=== PATIENT | male | born 1930 | race Caucasian/White ===

== ENCOUNTER → 2016-07-15 | Outpatient (CLI) | payer MEDICARE ==
[~2016-07-15] MED LIST: AVEL1TAB PO; MUCI600T34 PO; RAMI25CA PO
[2016-07-15 11:39] LABS: MEAN CORPUSCULAR HEMOGLOBIN 30.1 pg (27.0-33.0); MEAN CORPUSCULAR HGB CONC 32.8 g/dl (32.0-36.5); RED CELL DISTRIBUTION WIDTH 13.4 % (11.5-14.5); WHITE BLOOD COUNT 4.2 K/mm3 (4.0-10.0)
[2016-07-15 12:00] LABS: ALBUMIN 4.2 GM/DL (3.2-5.2); BILIRUBIN,TOTAL 0.6 MG/DL (0.2-1.0); CALCIUM LEVEL 9.5 MG/DL (8.8-10.2); CREATININE FOR GFR 1.31 MG/DL (0.70-1.30); GLOMERULAR FILTRATION RATE 55.4 (>35); POTASSIUM SERUM 4.6 MEQ/L (3.5-5.1); TOTAL PROTEIN 8.4 GM/DL (6.4-8.2)
== END ==
LOC: M WUC 09:37
PROVIDERS: ATTEND Family Medicine
DX: I10 Essential (primary) hypertension (principal); R73.01 Impaired fasting glucose

== ENCOUNTER 2018-05-10 10:53 | Inpatient (IN) | payer OTHER, MEDICARE ==
[~2018-05-10] VITALS: Ht 177.8 cm; Wt 65.9 kg
[~2018-05-10 10:53] MED LIST changes: -AVEL1TAB PO; +AVEL1TAB3 PO; -MUCI600T34 PO; +MUCI600T37 PO; +RAMI1CAP22 PO; -RAMI25CA PO
[2018-05-10 11:35] LABS: BASO % 0.3 % (0.0-1.0); EOS # 0.1 10^3/uL (0.0-0.50); EOS % 2.4 % (0.0-3.0); HEMOGLOBIN 15.3 g/dl (13.5-17.5); LYMPH # 1.2 10^3/uL (1.5-4.5); LYMPH % 20.6 % (24.0-44.0); MEAN CORPUSCULAR HEMOGLOBIN 30.2 pg (27.0-33.0); MEAN CORPUSCULAR HGB CONC 33.3 g/dl (32.0-36.5); MEAN CORPUSCULAR VOLUME 90.7 fl (80.0-96.0); MONO # 0.5 10^3/uL (0.0-0.8); MONO % 8.5 % (0.0-5.0); NEUTROPHILS # 3.9 10^3/uL (1.8-7.7); NEUTROPHILS % 67.5 % (36.0-66.0); PLATELET COUNT, AUTOMATED 207 10^3/uL (150-450); RED BLOOD COUNT 5.07 10^6/uL (4.30-6.10); WHITE BLOOD COUNT 5.8 10^3/uL (4.0-10.0)
--- NOTE | 2018-05-10 11:37 | REP ---
Clinical: Trauma. Comparison: 08/02/2015 . Findings: Age-related atrophy and microvascular ischemic changes are appreciated. The ventricles and sulci are symmetric. Boykin-white differentiation is maintained. There is no evidence for acute intracranial hemorrhage, mass/mass effect, pathology or infarction. No extra-axial fluid collection. Calvarium is intact. Paranasal sinuses and mastoid air cells are clear. Impression: Age related atrophy and microvascular ischemic changes. No acute intracranial hemorrhage, infarction, or mass/mass effect. Electronically Signed by Farooq Greenberg MD 05/10/2018 11:29 A
--- NOTE | 2018-05-10 11:40 | REP ---
Clinical: Trauma . Technique: Axial noncontrast images from the skull base to the thoracic inlet with coronal and sagittal re-formations Findings: Age-related osteopenia and advanced multilevel degenerative changes are appreciated. Alignment is maintained. There is no acute fracture / compression injury or subluxation. Spinal canal is patent. Posterior elements and spinous processes are intact. Paravertebral soft tissues are normal. Impression: Osteopenia and advanced multilevel degenerative changes. No acute fracture / compression injury or subluxation. Electronically Signed by Farooq Greenberg MD 05/10/2018 11:32 A
[2018-05-10 11:45] LABS: INR 0.95; PROTHROMBIN TIME 12.8 SECONDS (12.1-14.4)
[2018-05-10 12:15] LABS: ALBUMIN 3.7 GM/DL (3.2-5.2); BILIRUBIN,DIRECT 0.2 MG/DL (0.0-0.2); BILIRUBIN,TOTAL 0.5 MG/DL (0.2-1.0); CALCIUM LEVEL 8.7 MG/DL (8.8-10.2); CREATININE FOR GFR 1.37 MG/DL (0.70-1.30); GLOMERULAR FILTRATION RATE 52.3 (>35); POTASSIUM SERUM 4.2 MEQ/L (3.5-5.1); TOTAL PROTEIN 7.9 GM/DL (6.4-8.2)
--- NOTE | 2018-05-10 12:23 | REP ---
Clinical: Trauma. Technique: Single AP view of the pelvis. Findings: Age-related degenerative changes are appreciated. Evidence for old fixation for left proximal femur fracture. No acute fracture or dislocation identified. Impression: No acute fracture dislocation. Electronically Signed by Farooq Greenberg MD 05/10/2018 12:15 P
--- NOTE | 2018-05-10 12:24 | REP ---
Clinical: Trauma. Technique: AP and lateral views of the chest. Findings: Mediastinum and cardiac silhouette are normal. Lung nina demonstrate chronic interstitial changes. Left lower lobe atelectasis cannot be excluded. No effusion. No pneumothorax. Skeletal structures intact. Impression: Chronic changes with possible left basilar atelectasis Electronically Signed by Farooq Greenberg MD 05/10/2018 12:15 P
[2018-05-10] MEDS ORDERED: RAMIPRIL 5 MG CAP PO ONE (12:30)
[2018-05-10] MEDS ORDERED: RAMIPRIL 1.25 MG CAP PO ONE (12:30)
[2018-05-10] MEDS ORDERED: ISOVUE-370 76% 100ML VIAL (Q9967) As Ordered ONE (12:35)
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
--- NOTE | 2018-05-10 13:13 | REP ---
Clinical: Trauma. Technique: Axial contrast enhanced images from the lung bases to the pubic symphysis using 100 ml Isovue 370 intravenous contrast material with coronal and sagittal re-formations. Findings: Lung bases demonstrate basilar atelectasis (left greater than right) and calcified granuloma. There is small amount of subcapsular fluid surrounding the posterior aspect of the spleen concerning for subcapsular hemorrhage. No obvious splenic laceration identified. Splenic calcifications consistent with prior granulomas disease. Liver, pancreas, bilateral adrenal glands are normal. Kidneys demonstrate cortical atrophic changes and left renal cyst. Cholelithiasis noted. The enteric system is without obstruction or acute inflammatory process. Diffuse diverticulosis noted without acute diverticulitis. Pelvis demonstrates a significantly enlarged heterogeneous enhancing prostate gland measuring greater than 7.2 cm maximal diameter. Bladder is unremarkable. No ascites. No free air. Atherosclerotic changes of the aorta and vasculature without aneurysm or dissection. Musculoskeletal structures appear intact. Impression: 1. Possible small subcapsular splenic hematoma. 2. Cholelithiasis. 3. Diverticulosis. 4. Enlarged heterogeneous enhancing prostate gland. Electronically Signed by Farooq Greenberg MD 05/10/2018 01:05 P
--- NOTE | 2018-05-10 13:49 | ECGEPIP ---
Stationary ECG Study [facility] - ED Test Date: 2018-05-10 Pat Name: MATTHEW MARTIN Department: Room: - Gender: M District Resource Officer: jhonathanelma : 1930 Requested By: Izabella Ordonez Order Number: [id number] Reading MD: Izabella Ordonez Measurements Intervals Challenge Rate: 92 P: 86 NE: 202 QRS: 48 QRSD: 94 T: 54 QT: 337 QTc: 418 Interpretive Statements SINUS RHYTHM WITH OCCASIONAL SUPRAVENTRICULAR PREMATURE COMPLEXES PROBABLE NSTTW ABNORMALITY DECREASED RATE 08/02/15 Electronically Signed On 05-10-2018 13:49:27 EST by Izabella Ordonez
[2018-05-10] MEDS ORDERED: ACETAMINOPHEN TAB 650MG DOSE (2X325MG) PO PRN (16:30)
[2018-05-10] MEDS ORDERED: ONDANSETRON 4MG/2ML VIAL (J2405) IV PRN (16:30)
[2018-05-10 17:00] VITALS: BP 144/65
[2018-05-10] MEDS ORDERED: ACETAMINOPHEN 325 MG TAB As Ordered ONE (17:03)
[2018-05-10] MEDS: ACETAMINOPH W/CODEINE #3 TAB UD PO PRN (18:12)
[2018-05-10] MEDS: LR 1,000 ML IV SCH (18:23)
[2018-05-10] MEDS: DOCUSATE SODIUM 100 MG CAP PO SCH (21:24)
[2018-05-11 02:00] VITALS: BP 144/88
[2018-05-11 06:00] VITALS: BP 142/69
[2018-05-11 06:24] LABS: BASO % 0.3 % (0.0-1.0); EOS # 0.1 10^3/uL (0.0-0.50); EOS % 0.7 % (0.0-3.0); HEMATOCRIT 38.5 % (42.0-52.0); LYMPH # 0.7 10^3/uL (1.5-4.5); LYMPH % 10.3 % (24.0-44.0); MEAN CORPUSCULAR HGB CONC 33.8 g/dl (32.0-36.5); MEAN CORPUSCULAR VOLUME 88.7 fl (80.0-96.0); MONO # 0.8 10^3/uL (0.0-0.8); MONO % 10.7 % (0.0-5.0); NEUTROPHILS # 5.4 10^3/uL (1.8-7.7); NEUTROPHILS % 77.7 % (36.0-66.0); PLATELET COUNT, AUTOMATED 191 10^3/uL (150-450); RED BLOOD COUNT 4.34 10^6/uL (4.30-6.10)
[2018-05-11 06:59] LABS: ALBUMIN 3.2 GM/DL (3.2-5.2); ALT/SGPT 24 U/L (12-78); BILIRUBIN,TOTAL 0.9 MG/DL (0.2-1.0); BLOOD UREA NITROGEN 21 MG/DL (7-18); CALCIUM LEVEL 8.5 MG/DL (8.8-10.2); CARBON DIOXIDE LEVEL 28 MEQ/L (21-32); CHLORIDE LEVEL 103 MEQ/L (98-107); CREATININE FOR GFR 1.16 MG/DL (0.70-1.30); GLOMERULAR FILTRATION RATE > 60.0 (>35); GLUCOSE, FASTING 125 MG/DL (70-100); POTASSIUM SERUM 4.1 MEQ/L (3.5-5.1); SODIUM LEVEL 137 MEQ/L (136-145); TOTAL PROTEIN 6.6 GM/DL (6.4-8.2)
[2018-05-11] MEDS: RAMIPRIL 1.25 MG CAP PO SCH (09:04)
[2018-05-11] MEDS: LR 1,000 ML IV SCH (09:04)
[2018-05-11] MEDS: DOCUSATE SODIUM 100 MG CAP PO SCH ×2 (09:04→21:54)
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
[2018-05-11 10:00] VITALS: BP 126/78
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
[2018-05-11 14:00] VITALS: BP 140/62
[2018-05-11] MEDS: ACETAMINOPH W/CODEINE #3 TAB UD PO PRN (15:16)
[2018-05-11 18:00] VITALS: BP 166/78
[2018-05-11 22:00] VITALS: BP 129/66
[2018-05-12 02:00] VITALS: BP 145/94
[2018-05-12 05:35] LABS: BASO % 0.3 % (0.0-1.0); EOS # 0.1 10^3/uL (0.0-0.50); EOS % 1.2 % (0.0-3.0); HEMATOCRIT 39.6 % (42.0-52.0); HEMOGLOBIN 13.2 g/dl (13.5-17.5); MEAN CORPUSCULAR HEMOGLOBIN 29.8 pg (27.0-33.0); MEAN CORPUSCULAR HGB CONC 33.3 g/dl (32.0-36.5); MEAN CORPUSCULAR VOLUME 89.4 fl (80.0-96.0); MONO # 0.8 10^3/uL (0.0-0.8); MONO % 10.1 % (0.0-5.0); NEUTROPHILS # 5.7 10^3/uL (1.8-7.7); PLATELET COUNT, AUTOMATED 177 10^3/uL (150-450); RED BLOOD COUNT 4.43 10^6/uL (4.30-6.10); WHITE BLOOD COUNT 7.6 10^3/uL (4.0-10.0)
[2018-05-12 06:00] VITALS: BP 143/78
[2018-05-12] MEDS: ACETAMINOPH W/CODEINE #3 TAB UD PO PRN ×4 (06:12→23:17)
[2018-05-12] MEDS: DOCUSATE SODIUM 100 MG CAP PO SCH ×2 (08:42→20:02)
[2018-05-12] MEDS: RAMIPRIL 1.25 MG CAP PO SCH (08:45)
[2018-05-12 10:00] VITALS: BP 115/60
[2018-05-12 14:00] VITALS: BP 157/75
[2018-05-12 18:00] VITALS: BP 132/62
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
[2018-05-12 22:00] VITALS: BP 155/87
[2018-05-13] VITALS (7 sets, daily range): BP systolic 130–154; BP diastolic 62–79
[2018-05-13 04:14] LABS: APPEARANCE, URINE HAZY (CLEAR); BACTERIA, URINE AUTO NEGATIVE (NEGATIVE); BILIRUBIN, URINE AUTO NEGATIVE (NEGATIVE); BLOOD, URINE BLOOD 3+ (NEGATIVE); COLOR, URINE YELLOW (YELLOW); GLUCOSE, URINE (UA) AUTO NEGATIVE (NEGATIVE); KETONE, URINE AUTO 1+ mg/dL (NEGATIVE); LEUKOCYTE ESTERASE, URINE AUTO NEGATIVE (NEGATIVE); MUCUS, URINE SMALL (NEGATIVE); NITRITE, URINE AUTO NEGATIVE (NEGATIVE); PROTEIN, URINE AUTO 2+ mg/dL (NEGATIVE); RBC, URINE AUTO TNTC /HPF (0-3); SPECIFIC GRAVITY URINE AUTO 1.026 (1.002-1.035); SQUAMOUS EPITHELIAL CELL UR AU 0 /HPF (0-6); WBC, URINE AUTO 3 /HPF (0-3)
[2018-05-13] MEDS: RAMIPRIL 1.25 MG CAP PO SCH (08:29)
[2018-05-13] MEDS: DOCUSATE SODIUM 100 MG CAP PO SCH ×2 (08:29→19:51)
[2018-05-13] MEDS: ACETAMINOPH W/CODEINE #3 TAB UD PO PRN ×2 (08:30→15:36)
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
[2018-05-14 02:00] VITALS: BP 152/70
[2018-05-14 05:48] LABS: BASO % 0.1 % (0.0-1.0); EOS % 0.4 % (0.0-3.0); HEMATOCRIT 38.6 % (42.0-52.0); HEMOGLOBIN 12.7 g/dl (13.5-17.5); LYMPH # 0.7 10^3/uL (1.5-4.5); LYMPH % 8.8 % (24.0-44.0); MEAN CORPUSCULAR HEMOGLOBIN 29.7 pg (27.0-33.0); MEAN CORPUSCULAR HGB CONC 32.9 g/dl (32.0-36.5); MEAN CORPUSCULAR VOLUME 90.2 fl (80.0-96.0); MONO # 0.8 10^3/uL (0.0-0.8); MONO % 10.7 % (0.0-5.0); NEUTROPHILS # 6.3 10^3/uL (1.8-7.7); NEUTROPHILS % 79.7 % (36.0-66.0); PLATELET COUNT, AUTOMATED 209 10^3/uL (150-450); RED BLOOD COUNT 4.28 10^6/uL (4.30-6.10); WHITE BLOOD COUNT 7.9 10^3/uL (4.0-10.0)
[2018-05-14 06:00] VITALS: BP 142/69
[2018-05-14 06:13] LABS: ALBUMIN 2.8 GM/DL (3.2-5.2); CALCIUM LEVEL 8.8 MG/DL (8.8-10.2); CREATININE FOR GFR 1.24 MG/DL (0.70-1.30); GLOMERULAR FILTRATION RATE 58.7 (>35); POTASSIUM SERUM 3.9 MEQ/L (3.5-5.1); TOTAL PROTEIN 7.6 GM/DL (6.4-8.2)
[2018-05-14] MEDS: PERCOCET 5MG/325MG TAB PO PRN ×2 (08:00→17:05)
[2018-05-14] MEDS: RAMIPRIL 1.25 MG CAP PO SCH (08:01)
[2018-05-14] MEDS: DOCUSATE SODIUM 100 MG CAP PO SCH ×2 (08:01→20:34)
--- NOTE | 2018-05-14 08:12 | REP ---
Portable chest x-ray: Single view. History: Decreased oxygen saturation. Comparison study: May 10, 2018. Findings: Oxygen delivery tubing is seen. Right hemidiaphragm is somewhat elevated. There is infiltrate in the right lower lobe and patchy infiltrate is seen in the left lower lobe behind the heart. Slight blunting of the right lateral pleural angle is seen suggesting a small amount of pleural fluid. There is an old healed rib fracture on the right. The heart size is normal. No significant bony abnormality. Impression: Bibasilar infiltrates. Electronically Signed by Sukhjinder Cervantes MD 05/14/2018 08:04 A
[2018-05-14 10:00] VITALS: BP 125/58
[2018-05-14] MEDS: ACETAMINOPH W/CODEINE #3 TAB UD PO PRN (13:08)
[2018-05-14 14:00] VITALS: BP 113/58
[2018-05-14 18:00] VITALS: BP 126/67
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
[2018-05-14] MEDS: MIRALAX *UNIT DOSE* 17GM PACKET PO PRN (20:34)
[2018-05-14 22:00] VITALS: BP 124/60
[2018-05-15] MEDS: ACETAMINOPH W/CODEINE #3 TAB UD PO PRN (00:07)
[2018-05-15 02:00] VITALS: BP 144/65
[2018-05-15 06:00] VITALS: BP 132/76
[2018-05-15] MEDS: RAMIPRIL 1.25 MG CAP PO SCH (08:46)
[2018-05-15] MEDS: DOCUSATE SODIUM 100 MG CAP PO SCH ×2 (08:46→20:16)
[2018-05-15 10:00] VITALS: BP 108/60
[2018-05-15 14:00] VITALS: BP 122/62
[2018-05-15 18:00] VITALS: BP 142/76
[2018-05-15] MEDS: MIRALAX *UNIT DOSE* 17GM PACKET PO PRN (20:16)
[2018-05-15 22:00] VITALS: BP 151/70
[2018-05-16] VITALS (7 sets, daily range): BP systolic 120–170; BP diastolic 66–80
[2018-05-16] MEDS: RAMIPRIL 1.25 MG CAP PO SCH (07:04)
[2018-05-16] MEDS: ACETAMINOPH W/CODEINE #3 TAB UD PO PRN ×2 (07:08→20:41)
[2018-05-16] MEDS: DOCUSATE SODIUM 100 MG CAP PO SCH ×2 (08:35→20:40)
[2018-05-17] VITALS (7 sets, daily range): BP systolic 109–148; BP diastolic 72–91
[2018-05-17] MEDS: DOCUSATE SODIUM 100 MG CAP PO SCH ×2 (07:50→20:30)
[2018-05-17] MEDS: RAMIPRIL 1.25 MG CAP PO SCH (07:51)
[2018-05-17] MEDS: ACETAMINOPH W/CODEINE #3 TAB UD PO PRN (07:54)
[2018-05-18] MEDS: ACETAMINOPH W/CODEINE #3 TAB UD PO PRN (01:48)
[2018-05-18 02:00] VITALS: BP 140/80
[2018-05-18 06:00] VITALS: BP 140/75
[2018-05-18] MEDS: PERCOCET 5MG/325MG TAB PO PRN (08:40)
[2018-05-18 08:41] VITALS: BP 135/75
[2018-05-18] MEDS: DOCUSATE SODIUM 100 MG CAP PO SCH (08:41)
[2018-05-18] MEDS: RAMIPRIL 1.25 MG CAP PO SCH (08:41)
[2018-05-18 12:00] VITALS: BP 132/81
[2018-05-18 14:00] VITALS: BP 106/51
[2018-05-18 18:00] VITALS: BP 112/74
== END 2018-05-18 18:40 | DRG 930 ==
LOC: M ED 10:53 → M ED INP 16:22 → M MSPAV 17:34
PROVIDERS: ADMIT Surgery; ATTEND Surgery
DX: S22.20XA Unspecified fracture of sternum, initial encounter for closed fracture (principal); S36.029A Unspecified contusion of spleen, initial encounter; I10 Essential (primary) hypertension; E78.5 Hyperlipidemia, unspecified; K57.30 Diverticulosis of large intestine without perforation or abscess without bleeding; V47.0XXA Car driver injured in collision with fixed or stationary object in nontraffic accident, initial encounter

== ENCOUNTER 2018-05-18 15:27 | Inpatient (IN) | payer OTHER, MEDICARE ==
[~2018-05-18] VITALS: Ht 177.8 cm; Wt 63.9 kg
[2018-05-18] MEDS ORDERED: NORCO, ANEXSIA 5/325MG TABLET (HYDROcodone/ACETAMINOPHEN) PO PRN (18:30)
[2018-05-18] MEDS ORDERED: ACETAMINOPHEN TAB 650MG DOSE (2X325MG) PO PRN (18:30)
[2018-05-18] MEDS ORDERED: ONDANSETRON 4 MG TAB (S0181) PO PRN (18:30)
[2018-05-18] MEDS ORDERED: MOM 30ML SUSPENSION UDC PO PRN (18:30)
[2018-05-18] MEDS ORDERED: BISACODYL 10 MG SUPP PR PRN (18:30)
[2018-05-18 18:50] VITALS: BP 129/72
[2018-05-18 20:00] VITALS: BP 137/82
[2018-05-18] MEDS: FERROUS GLUCONATE 324 MG TAB PO SCH (21:32)
[2018-05-18] MEDS: SENOKOT S TAB PO SCH (21:32)
[2018-05-18] MEDS: SENNA 8.6 MG TAB (SENOKOT) PO SCH (21:32)
[2018-05-19 05:15] LABS: APPEARANCE, URINE HAZY (CLEAR); BACTERIA, URINE AUTO NEGATIVE (NEGATIVE); BILIRUBIN, URINE AUTO NEGATIVE (NEGATIVE); BLOOD, URINE BLOOD NEGATIVE (NEGATIVE); COLOR, URINE YELLOW (YELLOW); GLUCOSE, URINE (UA) AUTO NEGATIVE (NEGATIVE); KETONE, URINE AUTO TRACE mg/dL (NEGATIVE); LEUKOCYTE ESTERASE, URINE AUTO NEGATIVE (NEGATIVE); MUCUS, URINE SMALL (NEGATIVE); NITRITE, URINE AUTO NEGATIVE (NEGATIVE); PROTEIN, URINE AUTO NEGATIVE (NEGATIVE); RBC, URINE AUTO 7 /HPF (0-3); SPECIFIC GRAVITY URINE AUTO 1.021 (1.002-1.035); SQUAMOUS EPITHELIAL CELL UR AU 0 /HPF (0-6); TRANSITIONAL EPITHELIAL AUTO 1 /HPF; WBC, URINE AUTO 2 /HPF (0-3)
[2018-05-19 06:09] VITALS: BP 114/55
[2018-05-19 07:05] LABS: BASO % 0.3 % (0.0-1.0); EOS # 0.1 10^3/uL (0.0-0.50); EOS % 1.3 % (0.0-3.0); HEMOGLOBIN 12.6 g/dl (13.5-17.5); LYMPH # 1.1 10^3/uL (1.5-4.5); LYMPH % 10.6 % (24.0-44.0); MEAN CORPUSCULAR HEMOGLOBIN 29.9 pg (27.0-33.0); MEAN CORPUSCULAR HGB CONC 33.2 g/dl (32.0-36.5); MEAN CORPUSCULAR VOLUME 90.3 fl (80.0-96.0); MONO % 9.9 % (0.0-5.0); NEUTROPHILS # 7.8 10^3/uL (1.8-7.7); NEUTROPHILS % 77.2 % (36.0-66.0); PLATELET COUNT, AUTOMATED 314 10^3/uL (150-450); RED BLOOD COUNT 4.21 10^6/uL (4.30-6.10); WHITE BLOOD COUNT 10.1 10^3/uL (4.0-10.0)
[2018-05-19 07:31] LABS: ALBUMIN 2.6 GM/DL (3.2-5.2); ALT/SGPT 54 U/L (12-78); BILIRUBIN,TOTAL 0.5 MG/DL (0.2-1.0); BLOOD UREA NITROGEN 44 MG/DL (7-18); CALCIUM LEVEL 8.8 MG/DL (8.8-10.2); CARBON DIOXIDE LEVEL 30 MEQ/L (21-32); CHLORIDE LEVEL 103 MEQ/L (98-107); CREATININE FOR GFR 1.04 MG/DL (0.70-1.30); GLOMERULAR FILTRATION RATE > 60.0 (>35); GLUCOSE, FASTING 136 MG/DL (70-100); POTASSIUM SERUM 3.7 MEQ/L (3.5-5.1); SODIUM LEVEL 141 MEQ/L (136-145); TOTAL PROTEIN 7.3 GM/DL (6.4-8.2)
[2018-05-19] MEDS ORDERED: RAMIPRIL 1.25 MG CAP PO SCH (09:00)
[2018-05-19] MEDS: SENOKOT S TAB PO SCH ×2 (09:11→21:00)
[2018-05-19] MEDS: RAMIPRIL 1.25 MG CAP PO SCH (09:11)
[2018-05-19] MEDS: FERROUS GLUCONATE 324 MG TAB PO SCH ×2 (09:12→21:33)
[2018-05-19] MEDS: PANTOPRAZOLE 40MG TAB (PROTONIX) PO SCH (09:12)
[2018-05-19 14:00] VITALS: BP 118/60
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
[2018-05-19 21:00] VITALS: BP 134/64
[2018-05-19] MEDS: SENNA 8.6 MG TAB (SENOKOT) PO SCH (21:00)
[2018-05-20 06:00] VITALS: BP 148/70
[2018-05-20 06:31] LABS: HEMATOCRIT 39.8 % (42.0-52.0); HEMOGLOBIN 13.2 g/dl (13.5-17.5); MEAN CORPUSCULAR HEMOGLOBIN 29.8 pg (27.0-33.0); MEAN CORPUSCULAR HGB CONC 33.2 g/dl (32.0-36.5); MEAN CORPUSCULAR VOLUME 89.8 fl (80.0-96.0); PLATELET COUNT, AUTOMATED 335 10^3/uL (150-450); RED BLOOD COUNT 4.43 10^6/uL (4.30-6.10); WHITE BLOOD COUNT 5.8 10^3/uL (4.0-10.0)
[2018-05-20 06:41] LABS: BLOOD UREA NITROGEN 32 MG/DL (7-18); CALCIUM LEVEL 9.1 MG/DL (8.8-10.2); CARBON DIOXIDE LEVEL 29 MEQ/L (21-32); CHLORIDE LEVEL 102 MEQ/L (98-107); CREATININE FOR GFR 1.07 MG/DL (0.70-1.30); GLOMERULAR FILTRATION RATE > 60.0 (>35); GLUCOSE, FASTING 117 MG/DL (70-100); POTASSIUM SERUM 3.7 MEQ/L (3.5-5.1); SODIUM LEVEL 138 MEQ/L (136-145)
[2018-05-20] MEDS: SENOKOT S TAB PO SCH ×2 (09:00→21:00)
[2018-05-20] MEDS: PANTOPRAZOLE 40MG TAB (PROTONIX) PO SCH (09:12)
[2018-05-20] MEDS: RAMIPRIL 1.25 MG CAP PO SCH (09:12)
[2018-05-20] MEDS: FERROUS GLUCONATE 324 MG TAB PO SCH ×2 (09:12→20:58)
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
[2018-05-20 14:00] VITALS: BP 122/60
--- NOTE | 2018-05-20 16:40 | REP ---
Duplex extremity venous ultrasound: Bilateral lower extremity. History: Immobility. Findings: The deep veins are anechoic and fully compressible from the groin to the popliteal fossa in the left and right lower extremity. Color flow imaging is homogeneous. Spectral Doppler interrogation demonstrates intact respiratory variation in flow and normal manual augmentation of flow. There is no evidence of deep vein thrombosis. Impression: Negative bilateral lower extremity duplex venous ultrasound. No evidence of deep vein thrombosis. Electronically Signed by Sukhjinder Cervantes MD 05/20/2018 04:32 P
[2018-05-20 20:00] VITALS: BP 121/59
[2018-05-21 06:00] VITALS: BP 132/60
[2018-05-21] MEDS: SENOKOT S TAB PO SCH ×2 (08:41→21:00)
[2018-05-21] MEDS: PANTOPRAZOLE 40MG TAB (PROTONIX) PO SCH (08:42)
[2018-05-21] MEDS: FERROUS GLUCONATE 324 MG TAB PO SCH ×2 (08:42→21:22)
[2018-05-21] MEDS: RAMIPRIL 1.25 MG CAP PO SCH (08:42)
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
[2018-05-21 14:00] VITALS: BP 131/63
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
[2018-05-21 21:00] VITALS: BP 146/67
[2018-05-22 06:00] VITALS: BP 127/64
[2018-05-22] MEDS: PANTOPRAZOLE 40MG TAB (PROTONIX) PO SCH (09:07)
[2018-05-22] MEDS: FERROUS GLUCONATE 324 MG TAB PO SCH ×2 (09:07→20:06)
[2018-05-22] MEDS: SENOKOT S TAB PO SCH ×2 (09:07→20:06)
[2018-05-22] MEDS: RAMIPRIL 1.25 MG CAP PO SCH (09:08)
[2018-05-22 14:00] VITALS: BP 132/66
[2018-05-22 20:00] VITALS: BP 126/64
[2018-05-23 06:00] VITALS: BP 138/69
[2018-05-23] MEDS: PANTOPRAZOLE 40MG TAB (PROTONIX) PO SCH (08:28)
[2018-05-23] MEDS: RAMIPRIL 1.25 MG CAP PO SCH (08:28)
[2018-05-23] MEDS: FERROUS GLUCONATE 324 MG TAB PO SCH ×2 (08:29→20:40)
[2018-05-23] MEDS: SENOKOT S TAB PO SCH ×2 (08:29→20:40)
[2018-05-23 14:00] VITALS: BP 131/63
[2018-05-23 20:45] VITALS: BP 158/72
[2018-05-24 06:00] VITALS: BP 163/79
[2018-05-24] MEDS: RAMIPRIL 1.25 MG CAP PO SCH (08:29)
[2018-05-24] MEDS: FERROUS GLUCONATE 324 MG TAB PO SCH ×2 (08:29→21:06)
[2018-05-24] MEDS: SENOKOT S TAB PO SCH ×2 (08:29→21:00)
[2018-05-24] MEDS: PANTOPRAZOLE 40MG TAB (PROTONIX) PO SCH (08:29)
[2018-05-24 14:00] VITALS: BP 114/55
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
[2018-05-24 20:00] VITALS: BP 118/58
[2018-05-25 06:00] VITALS: BP 146/71
[2018-05-25 06:40] LABS: HEMATOCRIT 38.2 % (42.0-52.0); HEMOGLOBIN 12.5 g/dl (13.5-17.5); MEAN CORPUSCULAR HEMOGLOBIN 29.4 pg (27.0-33.0); MEAN CORPUSCULAR HGB CONC 32.7 g/dl (32.0-36.5); MEAN CORPUSCULAR VOLUME 89.9 fl (80.0-96.0); PLATELET COUNT, AUTOMATED 410 10^3/uL (150-450); RED BLOOD COUNT 4.25 10^6/uL (4.30-6.10); WHITE BLOOD COUNT 8.8 10^3/uL (4.0-10.0)
[2018-05-25 07:09] LABS: ALT/SGPT 39 U/L (12-78); BILIRUBIN,TOTAL 0.4 MG/DL (0.2-1.0); BLOOD UREA NITROGEN 28 MG/DL (7-18); CALCIUM LEVEL 8.9 MG/DL (8.8-10.2); CARBON DIOXIDE LEVEL 29 MEQ/L (21-32); CHLORIDE LEVEL 99 MEQ/L (98-107); CREATININE FOR GFR 1.17 MG/DL (0.70-1.30); GLOMERULAR FILTRATION RATE > 60.0 (>35); GLUCOSE, FASTING 115 MG/DL (70-100); SODIUM LEVEL 135 MEQ/L (136-145); TOTAL PROTEIN 7.2 GM/DL (6.4-8.2)
[2018-05-25 08:19] VITALS: BP 146/71
[2018-05-25] MEDS: SENOKOT S TAB PO SCH (08:19)
[2018-05-25] MEDS: PANTOPRAZOLE 40MG TAB (PROTONIX) PO SCH (08:19)
[2018-05-25] MEDS: RAMIPRIL 1.25 MG CAP PO SCH (08:19)
[2018-05-25] MEDS: FERROUS GLUCONATE 324 MG TAB PO SCH (08:19)
[2018-05-25] MEDS ORDERED: FERR32TA PO (11:02)
[2018-05-25] MEDS ORDERED: ALTA1CAP PO (11:02)
[2018-05-25 14:00] VITALS: BP 128/59
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
== END 2018-05-25 14:27 | disposition home or self-care (01) | DRG 862 ==
LOC: M PM&R 18:45
PROVIDERS: ADMIT Physical Medicine & Rehabilitation; ATTEND Physical Medicine & Rehabilitation
DX: S22.20XD Unspecified fracture of sternum, subsequent encounter for fracture with routine healing (principal); S36.029D Unspecified contusion of spleen, subsequent encounter; I12.9 Hypertensive chronic kidney disease with stage 1 through stage 4 chronic kidney disease, or unspecified chronic kidney disease; N40.0 Benign prostatic hyperplasia without lower urinary tract symptoms; E78.5 Hyperlipidemia, unspecified; F17.290 Nicotine dependence, other tobacco product, uncomplicated; K21.9 Gastro-esophageal reflux disease without esophagitis; V47.0XXD Car driver injured in collision with fixed or stationary object in nontraffic accident, subsequent encounter; R53.81 Other malaise; Y92.414 Local residential or business street as the place of occurrence of the external cause; Z85.828 Personal history of other malignant neoplasm of skin; D64.9 Anemia, unspecified; N18.9 Chronic kidney disease, unspecified; D72.829 Elevated white blood cell count, unspecified; Z96.641 Presence of right artificial hip joint; Z79.899 Other long term (current) drug therapy

== ENCOUNTER → 2018-08-17 | Outpatient (CLI) | payer MEDICARE ==
[~2018-08-17] MED LIST changes: +ALTA1CAP PO; +FERR32TA PO
[2018-08-17 12:46] LABS: BASO % 0.6 % (0.0-1.0); EOS # 0.2 10^3/uL (0.0-0.50); EOS % 3.9 % (0.0-3.0); HEMATOCRIT 47.3 % (42.0-52.0); LYMPH # 1.7 10^3/uL (1.5-4.5); LYMPH % 32.3 % (24.0-44.0); MEAN CORPUSCULAR HEMOGLOBIN 29.6 pg (27.0-33.0); MEAN CORPUSCULAR HGB CONC 31.7 g/dl (32.0-36.5); MEAN CORPUSCULAR VOLUME 93.5 fl (80.0-96.0); MONO # 0.5 10^3/uL (0.0-0.8); NEUTROPHILS # 2.9 10^3/uL (1.8-7.7); PLATELET COUNT, AUTOMATED 249 10^3/uL (150-450); RED BLOOD COUNT 5.06 10^6/uL (4.30-6.10); WHITE BLOOD COUNT 5.4 10^3/uL (4.0-10.0)
[2018-08-17 12:54] LABS: BILIRUBIN,TOTAL 0.4 MG/DL (0.2-1.0); CHOLESTEROL RISK RATIO 3.709 (<5); CREATININE FOR GFR 1.22 MG/DL (0.70-1.30); GLOMERULAR FILTRATION RATE 59.8 (>35); POTASSIUM SERUM 4.2 MEQ/L (3.5-5.1); TOTAL PROTEIN 7.6 GM/DL (6.4-8.2)
[2018-08-17 13:05] LABS: HEMOGLOBIN A1c 6.4 %
== END ==
LOC: M WUC 09:43
PROVIDERS: ATTEND Family Medicine
DX: I10 Essential (primary) hypertension (principal)

== ENCOUNTER 2019-01-15 11:25 | Inpatient (IN) | payer MEDICARE ==
[~2019-01-15] VITALS: Ht 177.8 cm; Wt 63.5 kg
[2019-01-15 12:50] LABS: BASO % 0.3 % (0.0-1.0); EOS % 0.6 % (0.0-3.0); HEMATOCRIT 44.5 % (42.0-52.0); HEMOGLOBIN 14.9 g/dl (13.5-17.5); LYMPH # 0.6 10^3/uL (1.5-5.0); MEAN CORPUSCULAR HEMOGLOBIN 30.3 pg (27.0-33.0); MEAN CORPUSCULAR HGB CONC 33.5 g/dl (32.0-36.5); MEAN CORPUSCULAR VOLUME 90.6 fl (80.0-96.0); MONO # 0.6 10^3/uL (0.0-0.8); MONO % 8.8 % (0.0-5.0); NEUTROPHILS # 5.6 10^3/uL (1.5-8.5); PLATELET COUNT, AUTOMATED 200 10^3/uL (150-450); RED BLOOD COUNT 4.91 10^6/uL (4.30-6.10); WHITE BLOOD COUNT 6.9 10^3/uL (4.0-10.0)
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
--- NOTE | 2019-01-15 13:06 | REP ---
Clinical: Syncope. Trauma. Technique: Axial noncontrast images from the skull base to the thoracic inlet with coronal and sagittal re-formations. Comparison: 05/10/2018. Findings: Advanced multilevel degenerative disc osteophyte complexes are appreciated and essentially unchanged compared to prior examination. Exaggerated kyphosis noted with satisfactory alignment. There is no evidence for acute fracture / compression injury or subluxation. Spinal canal appears patent. Posterior elements are intact. Paravertebral soft tissues are normal. Impression: Stable advanced multilevel degenerative spondylosis. No acute fracture / compression injury or subluxation. Electronically Signed by Farooq Greenberg MD 01/15/2019 12:58 P
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
[2019-01-15 13:16] LABS: BLOOD UREA NITROGEN 29 MG/DL (7-18); CARBON DIOXIDE LEVEL 28 MEQ/L (21-32); CHLORIDE LEVEL 101 MEQ/L (98-107); CK-MB VALUE MASS 5.2 NG/ML (<3.6); CPK CREATINE PHOSPHOKINASE 879 U/L (39-308); CREATININE FOR GFR 1.13 MG/DL (0.70-1.30); GLOMERULAR FILTRATION RATE > 60.0 (>35); GLUCOSE, FASTING 126 MG/DL (70-100); MB/CK RELATIVE INDEX 0.59 (< OR =4); POTASSIUM SERUM 4.1 MEQ/L (3.5-5.1); SODIUM LEVEL 136 MEQ/L (136-145); TROPONIN I < 0.02 NG/ML (< 0.10)
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
--- NOTE | 2019-01-15 13:37 | REP ---
Clinical: Trauma. Fall. Technique: AP and lateral views of the left tibia / fibula. Findings: Degenerative changes at the knee and ankle joint. No acute fracture or dislocation. No subcutaneous emphysema or foreign body. Impression: No acute fracture or dislocation. Electronically Signed by Farooq Greenberg MD 01/15/2019 01:28 P
[2019-01-15] MEDS: NS 1,000 ML IV SCH ×3 (13:59→21:45)
[2019-01-15] MEDS ORDERED: RAMI1CAP21 PO (17:30)
[2019-01-15 21:40] VITALS: BP 162/74
[2019-01-15] MEDS: METOPROLOL TART 25 MG TABLET PO SCH (22:12)
[2019-01-15] MEDS: HEPARIN SOD (PORCINE) 5000 UNITS/ML VIAL SQ SCH (22:13)
--- NOTE | 2019-01-15 22:21 | MHCR ---
DATE OF CONSULTATION: 01/15/2019 HISTORY OF PRESENT ILLNESS: I was asked to evaluate this 88-year-old white man because the patient was brought in by family, he had apparently fallen the night before in his own apartment and was not found until the morning. The patient is insisting that he wants to go home and the provider has found that he has fractured ribs and atrial fibrillation and is concerned that he is not a safe discharge and the question is whether he understands that he is refusing to stay in the hospital and the consequences. The patient basically insisted that he knew he had moments but he did not really believe that what the doctor was telling him was wrong with him, he was able to tell me that he has fractured ribs, but he was saying that he did not feel any pain and so he doubted that he actually had fractured ribs. Also, he did not believe that he had any problems with his heart rhythm, telling me that he had been hospitalized in May and at that point tests were done and he did not have any such problem before. When I advised him that I was concerned that he did not really understand the consequences of refusing to stay in the hospital, the patient insisted that he was going to go home either way. The patient was cooperative in talking to me. He did tell me that his is in [facility] due to "old age," and then he tells me that she has dementia. He also stated that sometimes he does feel depressed, but then he told me that he was feeling depressed at this time because of the fact that he was not being allowed to go home. PAST PSYCHIATRIC HISTORY: The patient has no prior psychiatric history and no history of suicidal attempts. FAMILY HISTORY: There is no psychiatric illness in the family, according to the patient. MEDICAL HISTORY: This is as noted above. SUBSTANCE ABUSE HISTORY: The patient does not have any history of trouble with alcohol or drugs. MENTAL STATUS EXAMINATION: This patient is alert and oriented to person, place and time. He is verbally spontaneous. There is no formal thought disorder noted. He did say his mood is depressed, but basically he stated that prior to today his mood has been okay. Affect is appropriate to mood. He is not psychotic. He denies being suicidal or homicidal. Concentration is fair. Insight and judgment poor. Memory was fairly intact. He was able to remember two out of three objects in 5 minutes. He could tell me the state that we are in, the name of the president. He was able to follow my commands to close his eyes. He overall exhibited fairly intact memory. DIAGNOSES: None. TREATMENT PLAN: At this point, my recommendation is that the patient is unable to understand the consequences of refusing to go into the hospital, as noted above. He basically does not believe that what the doctor is telling him is true, as noted above.
[2019-01-16] MEDS: NS 1,000 ML IV SCH ×3 (01:39→09:35)
--- NOTE | 2019-01-16 03:22 | HPEPDOC ---
General Date of Admission Jan 15, 2019 at 18:44 Date of Service: Jan 15, 2019 Chief Complaint The patient is a 88-year-old male admitted with a reason for visit of Now Onset Afib. History of Present Illness 88m with hx of htn and bph. Pt was brought in by family after falling yesterday. He apparently has had several falls in the recent weeks and has been noncompliant with his walker. On my interview pt denies falling at all. He states he walks with his walker and has no trouble. He denies any chest pain, sob or palpitations. He also reports no rib pain. a full ros was performed and negative except as above Home Medications Scheduled Ramipril (Ramipril) 1.25 Mg Capsule, 1.25 MG PO DAILY, (Reported) Allergies Coded Allergies: No Known Drug Allergies (Verified Allergy, Unknown, 01/15/19) Family History Significant Family History: Noncontributory Social History * Smoker: former Smoker, pipe Alcohol: Denies Drugs: denies A-FIB/CHADSVASC A-FIB History Current/History of A-Fib/PAF?: Yes Current PO Anticoag Therapy: No Age/Risk Factor Scoring CHADSVASC: CHADSVASC Response (Comments) Value Age Risk Factor Age >/= 75 years old 2 Gender Risk Factor Male 0 Hx of CHF No 0 Hx of HTN Yes 1 Hx of Stroke/TIA/or VTE No 0 Hx of Diabetes No 0 Hx of Vascular Disease No 0 Total 3 Treatment Treatment ordered: NONE Reason Anticoagulant not given: Other (frequent falls) Other reason anticoagulant not: falls Physical Examination General Exam: Positive: Alert, Cooperative, No Acute Distress Eye Exam: Positive: PERRLA, Conjunctiva & lids normal, EOMI; Negative: Sclera icteric ENT Exam: Positive: Atraumatic, Mucous membr. moist/pink, Pharynx Normal Neck Exam: Positive: Supple; Negative: JVD, thyromegaly Chest Exam: Positive: Clear to auscultation, Normal air movement Heart Exam: Positive: Tachycardic, Irregular Rhythm, Normal S1, Normal S2; Negative: Murmurs Telemetry: Positive: Atrial fibrillation Abdomen Exam: Positive: Normal bowel sounds, Soft; Negative: Tenderness, Hepatospenomegaly Extremity Exam: Positive: Normal pulses; Negative: Clubbing, Cyanosis, Edema Skin Exam: Positive: Nl turgor and temperature; Negative: Breakdown, Lesion Neuro Exam: Positive: Normal Gait, Normal Speech, Cranial Nerves 3-12 NL, Reflexes 2+ Psych Exam: Negative: Mental status NL, Memory Intact, Oriented x 3 Vital Signs Vital Signs Date Time Temp Pulse Resp B/P (MAP) Pulse Ox O2 Delivery O2 Flow Rate FiO2 01/15/19 22:12 102 162/74 01/15/19 21:40 98.0 21 97 01/15/19 20:56 Room Air 01/15/19 11:35 95 Laboratory Data Labs 24H Laboratory Tests 2 01/15/19 12:03: Immature Granulocyte % (Auto) 0.3, White Blood Count 6.9, Red Blood Count 4.91, Hemoglobin 14.9, Hematocrit 44.5, Mean Corpuscular Volume 90.6, Mean Corpuscular Hemoglobin 30.3, Mean Corpuscular Hemoglobin Concent 33.5, Red Cell Distribution Width 13.6, Platelet Count 200, Neutrophils (%) (Auto) 81.0H, Lymphocytes (%) (Auto) 9.0L, Monocytes (%) (Auto) 8.8H, Eosinophils (%) (Auto) 0.6, Basophils (%) (Auto) 0.3, Neutrophils # (Auto) 5.6, Lymphocytes # (Auto) 0.6L, Monocytes # (Auto) 0.6, Eosinophils # (Auto) 0.0, Basophils # (Auto) 0.0, Nucleated Red Blood Cells % (auto) 0.0, Anion Gap 7L, Glomerular Filtration Rate > 60.0, Blood Urea Nitrogen 29H, Creatinine 1.13, Sodium Level 136, Potassium Level 4.1, Chloride Level 101, Carbon Dioxide Level 28, Calcium Level 9.0, Total Creatine Kinase 879H, Magnesium Level 2.0, Creatine Kinase MB 5.2H, Creatine Kinase MB Relative Index 0.59, Troponin I < 0.02, Thyroid Stimulating Hormone (TSH) 2.120 01/15/19 15:21: Urine Color YELLOW, Urine Appearance HAZY, Urine pH 5.0, Urine Specific [place] 1.024, Urine Protein 1+H, Urine Glucose (UA) NEGATIVE, Urine Ketones 1+H, Urine Blood 1+H, Urine Nitrite NEGATIVE, Urine Bilirubin NEGATIVE, Urine Urobilinogen 0.2, Urine Leukocyte Esterase NEGATIVE, Urine WBC (Auto) 2, Urine RBC (Auto) 4H, Urine Hyaline Casts (Auto) 1, Urine Bacteria (Auto) NEGATIVE, Urine Squamous Epithelial Cells 1, Urine Mucus (Auto) SMALL, Urine Sperm (Auto) CBC/BMP Laboratory Tests 01/15/19 12:03 Red Blood Count 4.91, Mean Corpuscular Volume 90.6, Mean Corpuscular Hemoglobin 30.3, Mean Corpuscular Hemoglobin Concent 33.5, Red Cell Distribution Width 13.6, Neutrophils (%) (Auto) 81.0 H, Lymphocytes (%) (Auto) 9.0 L, Monocytes (%) (Auto) 8.8 H, Eosinophils (%) (Auto) 0.6, Basophils (%) (Auto) 0.3, Neutrophils # (Auto) 5.6, Lymphocytes # (Auto) 0.6 L, Monocytes # (Auto) 0.6, Eosinophils # (Auto) 0.0, Basophils # (Auto) 0.0, Calcium Level 9.0, Total Creatine Kinase 879 H Assessment/Plan 88m p/w falls, found to have new afib afib given the report of falls, pt's unreliable accounting of the events and reluctance to use assistance I am hesitant to start anticoagulation will defer for now until it can be discussed with pt and family and after dc plan is better understood will start metoprolol for rate control continue telemetry tsh and echo pending falls PT and OT eval may need placement vs help at home Plan / VTE VTE Prophylaxis Ordered?: Yes PARKER CEJA MD Jan 16, 2019 03:22
[2019-01-16] MEDS: METOPROLOL TART 25 MG TABLET PO SCH (05:31)
[2019-01-16 06:00] VITALS: BP 129/76
[2019-01-16 06:31] LABS: BASO % 0.2 % (0.0-1.0); EOS # 0.1 10^3/uL (0.0-0.5); EOS % 1.4 % (0.0-3.0); HEMATOCRIT 36.6 % (42.0-52.0); LYMPH % 16.1 % (24.0-44.0); MEAN CORPUSCULAR HEMOGLOBIN 30.3 pg (27.0-33.0); MEAN CORPUSCULAR HGB CONC 33.1 g/dl (32.0-36.5); MEAN CORPUSCULAR VOLUME 91.7 fl (80.0-96.0); MONO # 0.6 10^3/uL (0.0-0.8); MONO % 8.9 % (0.0-5.0); NEUTROPHILS # 4.6 10^3/uL (1.5-8.5); NEUTROPHILS % 73.1 % (36.0-66.0); PLATELET COUNT, AUTOMATED 177 10^3/uL (150-450); RED BLOOD COUNT 3.99 10^6/uL (4.30-6.10); WHITE BLOOD COUNT 6.3 10^3/uL (4.0-10.0)
[2019-01-16 06:42] LABS: HEMOGLOBIN 12.1 g/dl (13.5-17.5)
[2019-01-16 07:11] LABS: BLOOD UREA NITROGEN 25 MG/DL (7-18); CARBON DIOXIDE LEVEL 27 MEQ/L (21-32); CHLORIDE LEVEL 108 MEQ/L (98-107); CREATININE FOR GFR 0.94 MG/DL (0.70-1.30); GLOMERULAR FILTRATION RATE > 60.0 (>35); GLUCOSE, FASTING 107 MG/DL (70-100); POTASSIUM SERUM 3.7 MEQ/L (3.5-5.1); SODIUM LEVEL 142 MEQ/L (136-145)
[2019-01-16] MEDS: RAMIPRIL 1.25 MG CAP PO SCH (08:03)
[2019-01-16] MEDS: HEPARIN SOD (PORCINE) 5000 UNITS/ML VIAL SQ SCH ×2 (08:03→20:25)
[2019-01-16] MEDS: NYSTATIN 100,000 UNITS/GM TOPICAL PWD 15 GM TOP SCH (08:04)
[2019-01-16] MEDS: ASPIRIN 81 MG ENTERIC TAB PO SCH (09:35)
[2019-01-16 14:00] VITALS: BP 142/70
--- NOTE | 2019-01-16 15:18 | IPNPDOC ---
Date Seen The patient was seen on 01/16/19. Progress Note SUBJECTIVE: Despite uncontrolled blood pressure, denies chest pain, headache, chest pain, changes in vision. denies dizziness, lightheadedness, or palpitations.SOB same as yesterday. no JOHNSON. OBJECTIVE: PHYSICAL EXAMINATION: VITALS: PLS SEE BELOW General Exam: 2l nasal cannula. no conversational dyspnea. HEENT: PERRLA, EOMI, NO JVD, NO thyromegaly,NO cervical LAD Chest Exam: AEBE clear b/l. Heart Exam: Irregular Rhythm, Normal S1, Normal S2; Abdomen Exam:soft nontender nondistended (+) BS Ext: right arm in sling. (-) edema, cyanosis, clubbing. LABORATORY DATA, IMAGING STUDIES, MICROBIOLOGY: PLS SEE BELOW ASSESSMENT AND PLAN: 88m p/w recurrent falls, found to have new afib. 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 pt did not want to be admitted to the hospital, but did not understand his medical issues. Recurrent falls at home with right arm injury and right rib fractures currently in sling. ECHO: no significant valvular disease most likely due to near syncope from uncontrolled atrial fibrillation. New Onset Atrial Fibrillation on ASA due to increased risk of ICH from recurrent falls and imbalance on atenolol for rate control with holding parameters right rib fractures due to recurrent falls. prn pain meds PT/O HTN, uncontrolled but had bradycardia from coreg nrovasc and prn hydralazine for sbp>150 or dbp>90 added for better control dispostion: PT/OT evaluation. 1-2 days. VS, I&O, 24H, Fishbone Vital Signs/I&O Vital Signs Date Time Temp Pulse Resp B/P (MAP) Pulse Ox O2 Delivery O2 Flow Rate FiO2 01/16/19 14:00 98.0 86 18 142/70 (94) 94 01/15/19 20:56 Room Air 01/15/19 11:35 95 I&O- Last 24 Hours up to 6 AM 01/16/19 05:59 Intake Total 1625 ml Output Total 100 ml Balance 1525 ml Laboratory Data 24H LABS Laboratory Tests 2 01/15/19 15:21: Urine Color YELLOW, Urine Appearance HAZY, Urine pH 5.0, Urine Specific [place] 1.024, Urine Protein 1+H, Urine Glucose (UA) NEGATIVE, Urine Ketones 1+H, Urine Blood 1+H, Urine Nitrite NEGATIVE, Urine Bilirubin NEGATIVE, Urine Urobilinogen 0.2, Urine Leukocyte Esterase NEGATIVE, Urine WBC (Auto) 2, Urine RBC (Auto) 4H, Urine Hyaline Casts (Auto) 1, Urine Bacteria (Auto) NEGATIVE, Urine Squamous Epithelial Cells 1, Urine Mucus (Auto) SMALL, Urine Sperm (Auto) 01/16/19 06:07: Immature Granulocyte % (Auto) 0.3, White Blood Count 6.3, Red Blood Count 3.99L, Hemoglobin 12.1#L, Hematocrit 36.6L, Mean Corpuscular Volume 91.7, Mean Corpuscular Hemoglobin 30.3, Mean Corpuscular Hemoglobin Concent 33.1, Red Cell Distribution Width 13.6, Platelet Count 177, Neutrophils (%) (Auto) 73.1H, Lymphocytes (%) (Auto) 16.1L, Monocytes (%) (Auto) 8.9H, Eosinophils (%) (Auto) 1.4, Basophils (%) (Auto) 0.2, Neutrophils # (Auto) 4.6, Lymphocytes # (Auto) 1.0L, Monocytes # (Auto) 0.6, Eosinophils # (Auto) 0.1, Basophils # (Auto) 0.0, Nucleated Red Blood Cells % (auto) 0.0, Anion Gap 7L, Glomerular Filtration Rate > 60.0, Blood Urea Nitrogen 25H, Creatinine 0.94, Sodium Level 142, Potassium Level 3.7, Chloride Level 108H, Carbon Dioxide Level 27, Calcium Level 8.0L, Thyroid Stimulating Hormone (TSH) 1.650 CBC/BMP Laboratory Tests 01/16/19 06:07 Red Blood Count 3.99 L, Mean Corpuscular Volume 91.7, Mean Corpuscular Hemoglobin 30.3, Mean Corpuscular Hemoglobin Concent 33.1, Red Cell Distribution Width 13.6, Neutrophils (%) (Auto) 73.1 H, Lymphocytes (%) (Auto) 16.1 L, Monocytes (%) (Auto) 8.9 H, Eosinophils (%) (Auto) 1.4, Basophils (%) (Auto) 0.2, Neutrophils # (Auto) 4.6, Lymphocytes # (Auto) 1.0 L, Monocytes # (Auto) 0.6, Eosinophils # (Auto) 0.1, Basophils # (Auto) 0.0, Calcium Level 8.0 L JOSE ELIAS HANNON MD Jan 16, 2019 15:12
[2019-01-16] MEDS: ATENOLOL 50 MG TAB PO SCH (20:25)
[2019-01-16 22:00] VITALS: BP 140/69
[2019-01-17 06:00] VITALS: BP 153/69
[2019-01-17] MEDS: ATENOLOL 50 MG TAB PO SCH ×2 (08:44→20:07)
[2019-01-17] MEDS: RAMIPRIL 1.25 MG CAP PO SCH (09:19)
[2019-01-17] MEDS: ASPIRIN 81 MG ENTERIC TAB PO SCH (09:19)
[2019-01-17] MEDS: HEPARIN SOD (PORCINE) 5000 UNITS/ML VIAL SQ SCH ×2 (09:20→20:07)
[2019-01-17] MEDS: NYSTATIN 100,000 UNITS/GM TOPICAL PWD 15 GM TOP SCH (09:20)
[2019-01-17 14:00] VITALS: BP 135/64
--- NOTE | 2019-01-17 14:50 | IPNPDOC ---
Date Seen The patient was seen on 01/17/19. Progress Note SUBJECTIVE: Pt is cooperative, and despite wanting to go home, remains calm and not belligerent. Per OT/PT, pt unable to do ADL's and most likely will not remember using assistive devices at home, and likely to have recurrent falls. pt's HR has been stable, and denies palpitations, chest pain, pressure, sob, tightness, or lightheadedness. no other issues per RN overnight. no bowel movement per RN. OBJECTIVE: PHYSICAL EXAMINATION: VITALS: PLS SEE BELOW General Exam: hard of hearing. sitting at 90 degrees on his bed 2l nasal cannula. no conversational dyspnea. HEENT: PERRLA, EOMI, NO JVD, NO thyromegaly,NO cervical LAD Chest Exam: AEBE clear b/l. Heart Exam: Irregular Rhythm, Normal S1, Normal S2; Abdomen Exam:soft nontender nondistended (+) BS Ext: (-) edema, cyanosis, clubbing. LABORATORY DATA, IMAGING STUDIES, MICROBIOLOGY: PLS SEE BELOW ASSESSMENT AND PLAN: 88m p/w recurrent falls, found to have new afib. 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 pt did not want to be admitted to the hospital, but did not understand his medical issues. per pt/ot: pt needs help with his ADLs and will be at risk for falls at home if unsupervised as he will most likely forget to use assistive devices when he ambulates. Recurrent falls at home with possible right rib fractures on imaging ECHO: no significant valvular disease most likely due to near syncope from uncontrolled atrial fibrillation. New Onset Atrial Fibrillation on ASA due to increased risk of ICH from recurrent falls and imbalance on atenolol for rate control with holding parameters possible right rib fractures on imaging due to recurrent falls. denies pleuritic chest pain, or shortness of breath prn pain meds PT/O HTN,controlled on ramipril and atenolol with holding parameters dispostion: PT/OT consulted. lives alone and not safe to be unsupervised at home. may need placement. VS, I&O, 24H, Fishbone Vital Signs/I&O Vital Signs Date Time Temp Pulse Resp B/P (MAP) Pulse Ox O2 Delivery O2 Flow Rate FiO2 01/17/19 14:00 97.7 58 18 135/64 (87) 94 01/15/19 20:56 Room Air 01/15/19 11:35 95 I&O- Last 24 Hours up to 6 AM 01/17/19 06:00 Intake Total 2070 ml Output Total 550 ml Balance 1520 ml JOSE ELIAS HANNON MD Jan 17, 2019 14:46
[2019-01-17] MEDS ORDERED: BISACODYL 5 MG TAB PO PRN (15:00)
[2019-01-17] MEDS ORDERED: MIRALAX *UNIT DOSE* 17GM PACKET PO PRN (15:00)
[2019-01-17] MEDS ORDERED: FLEET ENEMA PR PRN (15:00)
[2019-01-17] MEDS ORDERED: MOM 30ML SUSPENSION UDC PO PRN (15:00)
[2019-01-17] MEDS ORDERED: SENOKOT S TAB PO PRN (15:00)
[2019-01-17 22:00] VITALS: BP 155/70
--- NOTE | 2019-01-17 22:01 | ECHO ---
DATE OF PROCEDURE: 01/17/2019 REFERRING PHYSICIAN: Dr. Ryan Leos INDICATION: Arrhythmia. Height 178 cm, weight 64 kg DIMENSIONS: IVS: 0.8 LV: 5.1 LVPW: 0.8 LA: 3.0 Aorta: 3.0 Study is of fair technical quality and it is not completed because the patient refused to continue with the examination. Underlying rhythm is sinus rhythm. Based on limited views, the patient has normal left ventricular (LV) size and systolic function. I estimate ejection fraction (EF) around 60%. Right ventricle was poorly seen but grossly appears normal. Both atria appear at least mildly enlarged. Right atrium was virtually not seen at all. Mitral valve is minimally sclerotic but mobility of leaflets is preserved. There is also sclerotic appearance to the aortic valve, but it appears tricuspid and with preserved mobility. Tricuspid valve appears normal. Pulmonic valve was not seen. No pericardial effusion is noted. Inferior vena cava was not visualized. Aortic root is normal. Aortic arch and abdominal aorta were not seen. Pulmonic valve also was not visualized. Doppler interrogation reveals no aortic stenosis or insufficiency. There is mild mitral and trace tricuspid insufficiency. Calculated pulmonary artery pressure is within normal limits based on poor quality TR jet; this should not be considered overly reliable. Evaluation of diastolic function was not performed. CONCLUSIONS: 1. Incomplete examination, the patient refused to continue with the second half of the exam. 2. Grossly preserved LV size and systolic function. Unable to estimate diastolic function. 3. No significant aortic, mitral and tricuspid valvular disease. 4. Unable to estimate central venous pressure. 5. Probably normal pulmonary artery pressure. COMMENT: Subacute bacterial endocarditis (SBE) prophylaxis is not recommended.
[2019-01-18 06:00] VITALS: BP 158/69
--- NOTE | 2019-01-18 06:57 | ECGEPIP ---
[facility] - ED Test Date: 2019-01-15 Pat Name: MATTHEW MARTIN Department: Room: - Gender: Male Prototype Carpenter: anayeli : [id number] Requested By: JOSUÉ PATTERSON Order Number: [id number] Reading MD: Gaurav Rose Measurements Intervals [place] Rate: 93 P: IA: 0 QRS: 59 QRSD: 85 T: 72 QT: 347 QTc: 432 Interpretive Statements SINUS RHTYM WITH BORDERLINE FIRST DEGREE AV BLOCK WITH OCCASIONAL SUPRAVENTRICULAR PREMATURE COMPLEXES BASELINE ARTIFACT AFFECTS INTERPRETATION SIMILAR TO 05/10/18 Electronically Signed on 01-18-2019 6:57:42 EDT by Gaurav Rose
[2019-01-18 08:26] VITALS: BP 133/63
[2019-01-18] MEDS: ASPIRIN 81 MG ENTERIC TAB PO SCH (08:28)
[2019-01-18] MEDS: ATENOLOL 50 MG TAB PO SCH ×2 (08:29→20:10)
[2019-01-18] MEDS: NYSTATIN 100,000 UNITS/GM TOPICAL PWD 15 GM TOP SCH (08:29)
[2019-01-18] MEDS: RAMIPRIL 1.25 MG CAP PO SCH (08:29)
[2019-01-18] MEDS: HEPARIN SOD (PORCINE) 5000 UNITS/ML VIAL SQ SCH ×2 (08:30→20:10)
--- NOTE | 2019-01-18 11:37 | IPNPDOC ---
Text Note Date of Service The patient was seen on 01/18/19. NOTE SUBJECTIVE: Pt is cooperative, and despite wanting to go home, remains calm and not belligerent. Wants to get out of bed and go to bathroom by himself. Per OT/PT, pt unable to do ADL's and most likely will not remember using assistive devices at home, and likely to have recurrent falls. OBJECTIVE: PHYSICAL EXAMINATION: VITALS: PLS SEE BELOW GENERAL: hard of hearing. sitting at 90 degrees on his bed 2l nasal cannula. no conversational dyspnea. Awake and alert. HEENT: PERRLA, EOMI, NO JVD, NECK: NO thyromegaly, NO JVD. CHEST:Bilateral symmetrical vesicular breath sounds, no added sounds. HEART: Irregular Rhythm, Normal S1, Normal S2; No rub, murmur or gallop ABDOMEN: soft nontender nondistended (+) BS Ext: (-) edema, cyanosis, clubbing. SKIN: No breakdown NEURO: No focal neuro deficits. Not oriented to time , knows person and place. very poor short term memory. ASSESSMENT AND PLAN: 88 year old male with PMH of hypertension, Dementia p/w recurrent falls, found to have new afib. 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 pt did not want to be admitted to the hospital, but did not understand his medical issues. per pt/ot: pt needs help with his ADLs and will be at risk for falls at home if unsupervised as he will most likely forget to use assistive devices when he ambulates. Recurrent falls at home with possible right rib fractures on imaging due to generalized deconditioning, poor balance, impaired mobility May also have intermittent presyncopal episodes due to a fib. ECHO: no significant valvular disease New Onset Atrial Fibrillation on ASA only due to increased risk of ICH from recurrent falls on atenolol for rate control with holding parameters Possible right rib fractures on imaging due to recurrent falls. denies pleuritic chest pain, or shortness of breath prn pain meds PT/O HTN controlled on ramipril and atenolol with holding parameters dispostion: PT/OT consulted. lives alone and not safe to be unsupervised at home. may need placement. VS,Fishbone, I+O VS, Fishbone, I+O Vital Signs Date Time Temp Pulse Resp B/P (MAP) Pulse Ox O2 Delivery O2 Flow Rate FiO2 01/18/19 06:00 97.8 70 20 158/69 (98) 95 01/15/19 20:56 Room Air 01/15/19 11:35 95 I&O- Last 24 Hours up to 6 AM 01/18/19 06:00 Intake Total 1488 ml Output Total 150 ml Balance 1338 ml JOHN CARTER MD Jan 18, 2019 06:47
[2019-01-18 14:00] VITALS: BP 131/62
[2019-01-18 22:00] VITALS: BP 152/68
[2019-01-19 06:00] VITALS: BP 122/60
[2019-01-19 06:13] LABS: BASO % 0.5 % (0.0-1.0); EOS # 0.3 10^3/uL (0.0-0.5); EOS % 4.3 % (0.0-3.0); HEMATOCRIT 35.5 % (42.0-52.0); HEMOGLOBIN 11.9 g/dl (13.5-17.5); LYMPH # 1.3 10^3/uL (1.5-5.0); LYMPH % 20.4 % (24.0-44.0); MEAN CORPUSCULAR HEMOGLOBIN 29.8 pg (27.0-33.0); MEAN CORPUSCULAR HGB CONC 33.5 g/dl (32.0-36.5); MEAN CORPUSCULAR VOLUME 88.8 fl (80.0-96.0); MONO # 0.5 10^3/uL (0.0-0.8); MONO % 8.3 % (0.0-5.0); NEUTROPHILS # 4.1 10^3/uL (1.5-8.5); PLATELET COUNT, AUTOMATED 238 10^3/uL (150-450); WHITE BLOOD COUNT 6.2 10^3/uL (4.0-10.0)
[2019-01-19 06:37] LABS: BLOOD UREA NITROGEN 30 MG/DL (7-18); CALCIUM LEVEL 8.6 MG/DL (8.8-10.2); CARBON DIOXIDE LEVEL 26 MEQ/L (21-32); CHLORIDE LEVEL 105 MEQ/L (98-107); CREATININE FOR GFR 0.98 MG/DL (0.70-1.30); GLOMERULAR FILTRATION RATE > 60.0 (>35); GLUCOSE, FASTING 210 MG/DL (70-100); POTASSIUM SERUM 3.8 MEQ/L (3.5-5.1); SODIUM LEVEL 139 MEQ/L (136-145)
[2019-01-19 08:52] VITALS: BP 108/54
[2019-01-19] MEDS: ATENOLOL 50 MG TAB PO SCH (08:52)
[2019-01-19] MEDS: RAMIPRIL 1.25 MG CAP PO SCH (08:52)
[2019-01-19] MEDS: ASPIRIN 81 MG ENTERIC TAB PO SCH (08:57)
[2019-01-19] MEDS: NYSTATIN 100,000 UNITS/GM TOPICAL PWD 15 GM TOP SCH (08:58)
[2019-01-19] MEDS: HEPARIN SOD (PORCINE) 5000 UNITS/ML VIAL SQ SCH (08:58)
[2019-01-19] MEDS ORDERED: NYAM10003 TOP (11:01)
[2019-01-19] MEDS ORDERED: BISAC5TA PO (11:01)
[2019-01-19] MEDS ORDERED: ASPI81TAEC PO (11:01)
[2019-01-19] MEDS ORDERED: SENN-52 PO (11:01)
[2019-01-19] MEDS ORDERED: ATEN50TA2 PO (11:01)
[2019-01-19] MEDS ORDERED: PEG1POW PO (11:01)
--- NOTE | 2019-01-19 13:01 | DS.PDOC ---
Discharge Summary General Date of Admission Jan 15, 2019 at 18:44 Date of Discharge 01/19/19 Discharge Summary PROCEDURES PERFORMED DURING STAY: [None]. DISCHARGE DIAGNOSES: New onset atrial fibrillation Advanced dementia unable to take caer of himself at home Recurrent falls due to gait imbalance Hypertension COMPLICATIONS/CHIEF COMPLAINT: Now Onset Afib. HISTORY OF PRESENT ILLNESS: See history and physical HOSPITAL COURSE: ASSESSMENT AND PLAN: 88 year old male with PMH of hypertension, Dementia p/w recurrent falls, found to have new afib. 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 pt did not want to be admitted to the hospital, but did not understand his medical issues. per pt/ot: pt needs help with his ADLs and will be at risk for falls at home if unsupervised as he will most likely forget to use assistive devices when he ambulates. Recurrent falls at home with possible right rib fractures on imaging due to generalized deconditioning, poor balance, impaired mobility May also have intermittent presyncopal episodes due to a fib. ECHO: no significant valvular disease New Onset Atrial Fibrillation on ASA only due to increased risk of ICH from recurrent falls on atenolol for rate control with holding parameters Possible right rib fractures on imaging due to recurrent falls. denies pleuritic chest pain, or shortness of breath prn pain meds PT/O HTN controlled on ramipril and atenolol with holding parameters dispostion: PT/OT consulted. lives alone and not safe to be unsupervised at home. may need placement. DISCHARGE MEDICATIONS: Please see below. ALLERGIES: Please see below. PHYSICAL EXAMINATION ON DISCHARGE: VITAL SIGNS: Please see below. GENERAL: hard of hearing. sitting at 90 degrees on his bed 2l nasal cannula. no conversational dyspnea. Awake and alert. HEENT: PERRLA, EOMI, NO JVD, NECK: NO thyromegaly, NO JVD. CHEST:Bilateral symmetrical vesicular breath sounds, no added sounds. HEART: Irregular Rhythm, Normal S1, Normal S2; No rub, murmur or gallop ABDOMEN: soft nontender nondistended (+) BS Ext: (-) edema, cyanosis, clubbing. SKIN: No breakdown NEURO: No focal neuro deficits. Not oriented to time , knows person and place. very poor short term memory. LABORATORY DATA: Please see below. ACTIVITY: [As tolerated]. DIET: As tolerated DISPOSITION: [facility]. DISCHARGE INSTRUCTIONS: follow up with PMD in 2 weeks DISCHARGE CONDITION: [Stable]. TIME SPENT ON DISCHARGE: 35 minutes. Vital Signs/I&Os Vital Signs Date Time Temp Pulse Resp B/P (MAP) Pulse Ox O2 Delivery O2 Flow Rate FiO2 01/19/19 08:52 71 108/54 01/19/19 06:00 99.7 20 91 01/15/19 20:56 Room Air 01/15/19 11:35 95 I&O- Last 24 Hours up to 6 AM 01/19/19 06:00 Intake Total 1476 ml Output Total 500 ml Balance 976 ml Laboratory Data Labs 24H Laboratory Tests 2 01/19/19 05:22: Immature Granulocyte % (Auto) 0.5, White Blood Count 6.2, Red Blood Count 4.00L, Hemoglobin 11.9L, Hematocrit 35.5L, Mean Corpuscular Volume 88.8, Mean Corpuscular Hemoglobin 29.8, Mean Corpuscular Hemoglobin Concent 33.5, Red Cell Distribution Width 13.7, Platelet Count 238, Neutrophils (%) (Auto) 66.0, Lymphocytes (%) (Auto) 20.4L, Monocytes (%) (Auto) 8.3H, Eosinophils (%) (Auto) 4.3H, Basophils (%) (Auto) 0.5, Neutrophils # (Auto) 4.1, Lymphocytes # (Auto) 1.3L, Monocytes # (Auto) 0.5, Eosinophils # (Auto) 0.3, Basophils # (Auto) 0.0, Nucleated Red Blood Cells % (auto) 0.0, Anion Gap 8, Glomerular Filtration Rate > 60.0, Blood Urea Nitrogen 30H, Creatinine 0.98, Sodium Level 139, Potassium Level 3.8, Chloride Level 105, Carbon Dioxide Level 26, Calcium Level 8.6L CBC/BMP Laboratory Tests 01/19/19 05:22 Red Blood Count 4.00 L, Mean Corpuscular Volume 88.8, Mean Corpuscular Hemoglobin 29.8, Mean Corpuscular Hemoglobin Concent 33.5, Red Cell Distribution Width 13.7, Neutrophils (%) (Auto) 66.0, Lymphocytes (%) (Auto) 20.4 L, Monocytes (%) (Auto) 8.3 H, Eosinophils (%) (Auto) 4.3 H, Basophils (%) (Auto) 0.5, Neutrophils # (Auto) 4.1, Lymphocytes # (Auto) 1.3 L, Monocytes # (Auto) 0.5, Eosinophils # (Auto) 0.3, Basophils # (Auto) 0.0, Calcium Level 8.6 L Discharge Medications Scheduled Aspirin (Aspirin EC) 81 Mg Tablet.dr, 81 MG PO DAILY Atenolol (Atenolol) 50 Mg Tablet, 50 MG PO BID Nystatin (Nyamyc) 15 Gm Powder, 0 DOSE TOP DAILY Ramipril (Ramipril) 1.25 Mg Capsule, 1.25 MG PO DAILY, (Reported) Scheduled PRN Bisacodyl (Bisacodyl) 5 Mg Tablet.dr, 10 MG PO DAILYPRN PRN for CONSTIPATION Polyethylene Glycol 3350 (Polyethylene Glycol 3350) 17 Gm Powd.pack, 1 PKT PO DAILYPRN PRN for CONSTIPATION Sennosides/Docusate Sodium (Senna Plus Tablet) 1 Each Tablet, 2 TAB PO BIDP PRN for CONSTIPATION Allergies Coded Allergies: No Known Drug Allergies (Verified Allergy, Unknown, 01/15/19) JOHN CARTER MD Jan 19, 2019 13:01
== END 2019-01-19 11:59 | DRG 309 ==
LOC: M ED 11:25 → EDBD 11:25 → M ED INP 18:44 → M MSPAV 21:32
PROVIDERS: ADMIT Hospitalist; ATTEND Internal Medicine Nephrology
DX: I48.91 Unspecified atrial fibrillation (principal); S22.41XA Multiple fractures of ribs, right side, initial encounter for closed fracture; R29.6 Repeated falls; I10 Essential (primary) hypertension; F03.90 Unspecified dementia, unspecified severity, without behavioral disturbance, psychotic disturbance, mood disturbance, and anxiety; R26.89 Other abnormalities of gait and mobility; Z76.82 Awaiting organ transplant status; Z79.899 Other long term (current) drug therapy; Z91.19 Patient's noncompliance with other medical treatment and regimen; W18.30XA Fall on same level, unspecified, initial encounter; Y92.009 Unspecified place in unspecified non-institutional (private) residence as the place of occurrence of the external cause

== ENCOUNTER → 2019-03-03 | Outpatient (REF) | payer MEDICARE ==
[~2019-03-03] MED LIST changes: +ASPI81TAEC PO; +ATEN50TA2 PO; +BISAC5TA PO; +NYAM10003 TOP; +PEG1POW PO; +RAMI1CAP21 PO; +SENN-52 PO
[2019-03-03 09:10] LABS: HEMATOCRIT 40.8 % (42.0-52.0); HEMOGLOBIN 13.3 g/dl (13.5-17.5); MEAN CORPUSCULAR HEMOGLOBIN 29.7 pg (27.0-33.0); MEAN CORPUSCULAR HGB CONC 32.6 g/dl (32.0-36.5); MEAN CORPUSCULAR VOLUME 91.1 fl (80.0-96.0); PLATELET COUNT, AUTOMATED 258 10^3/uL (150-450); RED BLOOD COUNT 4.48 10^6/uL (4.30-6.10); WHITE BLOOD COUNT 5.2 10^3/uL (4.0-10.0)
== END ==
LOC: SKLAB6 08:00
PROVIDERS: ATTEND Internal Medicine
DX: I48.91 Unspecified atrial fibrillation (principal)

== ENCOUNTER → 2019-07-26 | Outpatient (REF) | payer MEDICARE | LOC: SKLAB4 15:12 | PROVIDERS: ATTEND Internal Medicine | DX: R50.9 Fever, unspecified (principal); R05 Cough ==

== ENCOUNTER → 2019-08-13 | Outpatient (REF) | payer MEDICARE ==
[2019-08-13 20:16] LABS: BASO % 0.2 % (0.0-1.0); EOS # 0.1 10^3/uL (0.0-0.5); EOS % 0.8 % (0.0-3.0); HEMATOCRIT 38.5 % (42.0-52.0); HEMOGLOBIN 12.3 g/dl (13.5-17.5); LYMPH # 1.2 10^3/uL (1.5-5.0); LYMPH % 11.5 % (24.0-44.0); MEAN CORPUSCULAR HEMOGLOBIN 29.1 pg (27.0-33.0); MEAN CORPUSCULAR HGB CONC 31.9 g/dl (32.0-36.5); MONO # 0.9 10^3/uL (0.0-0.8); MONO % 8.7 % (0.0-5.0); NEUTROPHILS # 8.4 10^3/uL (1.5-8.5); NEUTROPHILS % 78.3 % (36.0-66.0); PLATELET COUNT, AUTOMATED 259 10^3/uL (150-450); RED BLOOD COUNT 4.23 10^6/uL (4.30-6.10); WHITE BLOOD COUNT 10.7 10^3/uL (4.0-10.0)
[2019-08-13 20:27] LABS: ALBUMIN 3.1 GM/DL (3.2-5.2); BILIRUBIN,TOTAL 0.4 MG/DL (0.2-1.0); CALCIUM LEVEL 8.5 MG/DL (8.8-10.2); CREATININE FOR GFR 1.27 MG/DL (0.70-1.30); POTASSIUM SERUM 3.7 MEQ/L (3.5-5.1); TOTAL PROTEIN 6.6 GM/DL (6.4-8.2)
[2019-08-13 21:21] LABS: APPEARANCE, URINE HAZY (CLEAR); BACTERIA, URINE AUTO NEGATIVE (NEGATIVE); BILIRUBIN, URINE AUTO NEGATIVE (NEGATIVE); BLOOD, URINE BLOOD NEGATIVE (NEGATIVE); CALCIUM OXALATE CRYSTALS SMALL; COLOR, URINE AMBER (YELLOW); GLUCOSE, URINE (UA) AUTO 1+ mg/dL (NEGATIVE); KETONE, URINE AUTO TRACE mg/dL (NEGATIVE); LEUKOCYTE ESTERASE, URINE AUTO NEGATIVE (NEGATIVE); MUCUS, URINE LARGE (NEGATIVE); NITRITE, URINE AUTO NEGATIVE (NEGATIVE); PROTEIN, URINE AUTO 1+ mg/dL (NEGATIVE); RBC, URINE AUTO 5 /HPF (0-3); SPECIFIC GRAVITY URINE AUTO 1.032 (1.002-1.035); SQUAMOUS EPITHELIAL CELL UR AU 0 /HPF (0-6); WBC, URINE AUTO 2 /HPF (0-3)
== END ==
LOC: SKLAB4 14:50
PROVIDERS: ATTEND Internal Medicine
DX: R50.9 Fever, unspecified (principal)

== ENCOUNTER → 2019-08-17 | Outpatient (REF) | payer MEDICARE ==
--- NOTE | 2019-08-17 17:02 | REP ---
LEFT SHOULDER, FOUR VIEWS: Four views of the left shoulder are performed. No acute fracture or dislocation is seen. There is no intrinsic osseous pathology. There is mild narrowing of the acromioclavicular joint. IMPRESSION: No fracture or dislocation. Electronically Signed by Pierre Boykin MD 08/18/2019 11:53 A
--- NOTE | 2019-08-17 17:02 | REP ---
LEFT HUMERUS, AP AND LATERAL: There is no evidence of an acute fracture, dislocation or intrinsic bone disease. IMPRESSION: No fracture or dislocation. Electronically Signed by Pierre Boykin MD 08/18/2019 11:53 A
== END ==
LOC: SKLAB4 09:45
PROVIDERS: ATTEND Internal Medicine
DX: M79.622 Pain in left upper arm (principal); M25.512 Pain in left shoulder; W19.XXXA Unspecified fall, initial encounter; Y92.129 Unspecified place in nursing home as the place of occurrence of the external cause; Y93.9 Activity, unspecified; Y99.9 Unspecified external cause status

== ENCOUNTER → 2019-08-30 | Outpatient (REF) | payer MEDICARE | LOC: SKLAB4 10:21 | PROVIDERS: ATTEND Internal Medicine | DX: E11.9 Type 2 diabetes mellitus without complications (principal) ==

== ENCOUNTER → 2019-09-21 | Outpatient (REF) | LOC: SKLAB4 13:05 | PROVIDERS: ATTEND Internal Medicine | DX: Z11.59 Encounter for screening for other viral diseases (principal); Z53.9 Procedure and treatment not carried out, unspecified reason ==

== ENCOUNTER → 2019-10-26 | Outpatient (CLI) | payer MEDICARE ==
--- NOTE | 2019-10-26 12:50 | REP ---
SCROTAL SONOGRAPHY: HISTORY: Testicular pain and discomfort. FINDINGS: High-resolution bilateral scrotal sonography demonstrates no evidence of intratesticular mass lesion on either side. There is a hyperechoic focus in the upper pole of the left testicle measuring 0.2 cm in diameter consistent with focal calcification. No mass lesion is visible. Testicular Doppler flow is intact bilaterally. Resistive indices are measured at 0.51 on the right and 0.53 on the left. There is a small right-sided hydrocele. There are bilateral epididymal cysts. The largest on the right measures 1.0 cm. The largest on the left measures 1.0 cm. Left testicular dimensions are 4.7 x 2.9 x 3.3 cm. Right testis measures 4.7 x 2.5 x 3.0 cm. IMPRESSION: No acute abnormality. Small bilateral epididymal cysts. No intratesticular mass. Intact bilateral testicular Doppler flow. Electronically Signed by Sukhjinder Cervantes MD 10/26/2019 05:14 P
== END ==
LOC: M RAD 11:24
PROVIDERS: ATTEND Nurse Practitioner
DX: N50.819 Testicular pain, unspecified (principal); N50.3 Cyst of epididymis

== ENCOUNTER → 2020-03-23 | Outpatient (REF) | LOC: SKLAB4 08:21 | PROVIDERS: ATTEND Internal Medicine | DX: Z20.828 Contact with and (suspected) exposure to other viral communicable diseases (principal) ==

== ENCOUNTER → 2020-03-28 | Outpatient (REF) | payer MEDICARE | LOC: SKLAB4 03-27 10:33 → EDSTATUS 04-25 08:46 | PROVIDERS: ATTEND Internal Medicine | DX: Z20.828 Contact with and (suspected) exposure to other viral communicable diseases (principal) ==

== ENCOUNTER → 2020-04-04 | Outpatient (REF) | payer MEDICARE | LOC: SKLAB4 08:00 | PROVIDERS: ATTEND Internal Medicine | DX: Z20.828 Contact with and (suspected) exposure to other viral communicable diseases (principal) ==

== ENCOUNTER → 2020-04-11 | Outpatient (REF) | payer MEDICARE | LOC: SKLAB4 12:01 | PROVIDERS: ATTEND Internal Medicine | DX: Z53.9 Procedure and treatment not carried out, unspecified reason (principal) ==

== ENCOUNTER → 2020-04-11 | Outpatient (REF) | payer MEDICARE ==
[2020-04-11 16:51] LABS: INFLUENZA A AMPLIFICATION NEGATIVE (NEGATIVE); INFLUENZA B AMPLIFICATION NEGATIVE (NEGATIVE)
== END ==
LOC: SKLAB4 08:00
PROVIDERS: ATTEND Internal Medicine
DX: Z20.828 Contact with and (suspected) exposure to other viral communicable diseases (principal)
CPT/HCPCS: 87502; U0003

== ENCOUNTER → 2020-04-18 | Outpatient (REF) | payer MEDICARE | LOC: SKLAB4 07:38 | PROVIDERS: ATTEND Internal Medicine | DX: Z20.828 Contact with and (suspected) exposure to other viral communicable diseases (principal) ==

== ENCOUNTER → 2020-04-25 | Outpatient (REF) | payer MEDICARE | LOC: SKLAB4 08:08 | PROVIDERS: ATTEND Internal Medicine | DX: Z20.828 Contact with and (suspected) exposure to other viral communicable diseases (principal) ==

== ENCOUNTER → 2020-05-02 | Outpatient (REF) | payer MEDICARE | LOC: SKLAB4 06:17 | PROVIDERS: ATTEND Internal Medicine | DX: Z20.828 Contact with and (suspected) exposure to other viral communicable diseases (principal) ==

== ENCOUNTER → 2020-05-09 | Outpatient (REF) | payer MEDICARE | LOC: SKLAB4 05:58 | PROVIDERS: ATTEND Internal Medicine | DX: Z20.828 Contact with and (suspected) exposure to other viral communicable diseases (principal) ==

== ENCOUNTER → 2020-05-16 | Outpatient (REF) | payer MEDICARE | LOC: SKLAB4 06:34 | PROVIDERS: ATTEND Internal Medicine | DX: Z11.52 Encounter for screening for COVID-19 (principal) ==

== ENCOUNTER → 2020-05-23 | Outpatient (REF) | payer MEDICARE | LOC: SKLAB4 06:11 | PROVIDERS: ATTEND Internal Medicine | DX: Z20.822 Contact with and (suspected) exposure to COVID-19 (principal) ==

== ENCOUNTER → 2020-05-30 | Outpatient (REF) | payer MEDICARE | LOC: SKLAB4 06:45 | PROVIDERS: ATTEND Internal Medicine | DX: Z20.822 Contact with and (suspected) exposure to COVID-19 (principal) ==

== ENCOUNTER → 2020-06-06 | Outpatient (REF) | payer MEDICARE | LOC: SKLAB4 06:15 | PROVIDERS: ATTEND Internal Medicine | DX: Z20.822 Contact with and (suspected) exposure to COVID-19 (principal) ==

== ENCOUNTER → 2020-06-13 | Outpatient (REF) | payer MEDICARE | LOC: SKLAB4 06:51 | PROVIDERS: ATTEND Internal Medicine | DX: Z20.822 Contact with and (suspected) exposure to COVID-19 (principal) ==

== ENCOUNTER → 2020-06-20 | Outpatient (REF) | payer MEDICARE | LOC: SKLAB4 06:38 | PROVIDERS: ATTEND Internal Medicine | DX: Z20.822 Contact with and (suspected) exposure to COVID-19 (principal) ==

== ENCOUNTER → 2020-06-27 | Outpatient (REF) | payer MEDICARE | LOC: SKLAB4 06:02 | PROVIDERS: ATTEND Internal Medicine | DX: Z20.822 Contact with and (suspected) exposure to COVID-19 (principal) ==

== ENCOUNTER → 2020-07-04 | Outpatient (REF) | payer MEDICARE ==
[~2020-07-04] MED LIST changes: +ASPI-569 PO; -ASPI81TAEC PO; -PEG1POW PO; +POLY17PO18 PO
== END ==
LOC: SKLAB4 06:38
PROVIDERS: ATTEND Internal Medicine
DX: Z20.822 Contact with and (suspected) exposure to COVID-19 (principal)

== ENCOUNTER → 2020-07-18 | Outpatient (REF) | payer MEDICARE | LOC: SKLAB4 06:47 | PROVIDERS: ATTEND Internal Medicine | DX: Z20.822 Contact with and (suspected) exposure to COVID-19 (principal) ==

== ENCOUNTER → 2020-07-25 | Outpatient (REF) | payer MEDICARE | LOC: SKLAB4 06:41 | PROVIDERS: ATTEND Internal Medicine | DX: Z20.822 Contact with and (suspected) exposure to COVID-19 (principal) ==

== ENCOUNTER → 2020-08-07 | Outpatient (REF) | payer MEDICARE ==
[2020-08-07 09:53] LABS: BLOOD UREA NITROGEN 10 MG/DL (7-18); CALCIUM LEVEL 8.9 MG/DL (8.8-10.2); CARBON DIOXIDE LEVEL 28 MEQ/L (21-32); CHLORIDE LEVEL 102 MEQ/L (98-107); CREATININE FOR GFR 1.08 MG/DL (0.70-1.30); GLOMERULAR FILTRATION RATE > 60.0 (>35); GLUCOSE, FASTING 121 MG/DL (70-100); POTASSIUM SERUM 3.8 MEQ/L (3.5-5.1); SODIUM LEVEL 138 MEQ/L (136-145)
== END ==
LOC: SKLAB4 07:32
PROVIDERS: ATTEND Internal Medicine
DX: R10.30 Lower abdominal pain, unspecified (principal)

== ENCOUNTER → 2020-08-10 | Outpatient (REF) | payer MEDICARE | LOC: SKLAB4 05:43 | PROVIDERS: ATTEND Internal Medicine | DX: Z20.822 Contact with and (suspected) exposure to COVID-19 (principal) ==

== ENCOUNTER → 2020-08-16 | Outpatient (REF) | payer MEDICARE ==
[2020-08-16 11:15] LABS: BLOOD UREA NITROGEN 11 MG/DL (7-18); CALCIUM LEVEL 8.7 MG/DL (8.8-10.2); CARBON DIOXIDE LEVEL 29 MEQ/L (21-32); CHLORIDE LEVEL 105 MEQ/L (98-107); CREATININE FOR GFR 1.08 MG/DL (0.70-1.30); GLOMERULAR FILTRATION RATE > 60.0 (>35); GLUCOSE, FASTING 124 MG/DL (70-100); POTASSIUM SERUM 3.8 MEQ/L (3.5-5.1); SODIUM LEVEL 140 MEQ/L (136-145)
== END ==
LOC: SKLAB4 09:45
PROVIDERS: ATTEND Internal Medicine
DX: F03.90 Unspecified dementia, unspecified severity, without behavioral disturbance, psychotic disturbance, mood disturbance, and anxiety (principal); I10 Essential (primary) hypertension

== ENCOUNTER → 2020-08-28 | Outpatient (REF) | payer MEDICARE ==
[2020-08-28 09:37] LABS: HEMATOCRIT 42.5 % (42.0-52.0); HEMOGLOBIN 13.6 g/dl (13.5-17.5); MEAN CORPUSCULAR HEMOGLOBIN 28.9 pg (27.0-33.0); MEAN CORPUSCULAR VOLUME 90.4 fl (80.0-96.0); PLATELET COUNT, AUTOMATED 257 10^3/uL (150-450)
[2020-08-28 10:10] LABS: ALBUMIN 3.3 GM/DL (3.2-5.2); BILIRUBIN,TOTAL 0.4 MG/DL (0.2-1.0); CREATININE FOR GFR 1.28 MG/DL (0.70-1.30); GLOMERULAR FILTRATION RATE 56.3 (>35); POTASSIUM SERUM 3.3 MEQ/L (3.5-5.1); TOTAL PROTEIN 7.1 GM/DL (6.4-8.2)
[2020-08-28 10:13] LABS: HEMOGLOBIN A1c 6.3 %
== END ==
LOC: SKLAB4 12:43
PROVIDERS: ATTEND Internal Medicine
DX: E11.9 Type 2 diabetes mellitus without complications (principal); D64.9 Anemia, unspecified

== ENCOUNTER → 2020-09-27 | Outpatient (CLI) | payer MEDICARE ==
--- NOTE | 2020-09-27 14:56 | REP ---
INDICATION: LEFT GROIN PAIN COMPARISON: 05/10/2018. TECHNIQUE: CT Scan of the abdomen and pelvis was performed without intravenous contrast. Sagittal and coronal reconstruction images performed. FINDINGS: Lung bases: There are bibasilar interstitial fibrotic changes. There is calcified granuloma in the left lower lobe. There is a small hiatal hernia. Liver: Grossly unremarkable. Gallbladder: Multiple gallstones are seen in the mildly distended gallbladder. Spleen: There are multiple calcified granulomas in the spleen. Adrenals: Normal. Pancreas: Grossly unremarkable.. Kidneys: No hydronephrosis or nephrolithiasis. Ureters demonstrate no dilatation or calculus. There is a hyperdense cyst in the upper pole the left kidney 1.3 cm. There is a cyst again seen in the left renal pelvis 2.7 cm. Small and large bowel: There are multiple diffuse colonic diverticula, with no definite evidence of diverticulitis. There is no free air or obstruction. Free fluid: None. Abdominal aorta: No aneurysm. Adenopathy: None. Appendix: Not inflamed. Osseous structures: There are mild degenerative changes of the spine without compression deformity.. There is metallic internal fixation in the proximal left femur. There are old healed left pubic fractures. Pelvis: Prostate is significantly enlarged.. No bladder calculus seen. The bladder is mildly distended, the wall appears trabeculated with several small diverticula. The inguinal regions are unremarkable. IMPRESSION: Multiple gallstones in a mildly distended gallbladder. Prostate is significantly enlarged. The bladder is mildly distended, and the bladder wall is trabeculated and demonstrates several small diverticula. <Electronically signed by Pierre Boykin > 09/27/20 [id number]
== END ==
LOC: M RAD 13:56
PROVIDERS: ATTEND Nurse Practitioner Adult Health
DX: N40.0 Benign prostatic hyperplasia without lower urinary tract symptoms (principal); N32.89 Other specified disorders of bladder; K80.20 Calculus of gallbladder without cholecystitis without obstruction; K44.9 Diaphragmatic hernia without obstruction or gangrene; N28.1 Cyst of kidney, acquired

== ENCOUNTER → 2020-09-27 | Outpatient (REF) | payer MEDICARE | LOC: SKLAB4 11:22 | PROVIDERS: ATTEND Internal Medicine | DX: Z53.8 Procedure and treatment not carried out for other reasons (principal) ==

== ENCOUNTER 2020-11-23 23:14 | Emergency (ER) | payer MEDICARE ==
[~2020-11-23] VITALS: Ht 177.8 cm; Wt 63.0 kg
[2020-11-23] MEDS ORDERED: ELIQ2.5T PO (23:44)
[2020-11-24] MEDS ORDERED: ACETAMINOPHEN TAB 650MG DOSE (2X325MG) PO ONE (00:15)
--- NOTE | 2020-11-24 00:16 | REPVR ---
PROCEDURE INFORMATION: Exam: CT Head Without Contrast Exam date and time: 11/23/2020 11:16 PM Age: 89 years old Clinical indication: Injury or trauma; Fall; Concussion/head injury TECHNIQUE: Imaging protocol: Computed tomography of the head without contrast. Radiation optimization: All CT scans at this facility use at least one of these dose optimization techniques: automated exposure control; mA and/or kV adjustment per patient size (includes targeted exams where dose is matched to clinical indication); or iterative reconstruction. COMPARISON: CT Head without contrast 01/15/2019 12:42 PM FINDINGS: Limitations: Examination is limited by motion artifact. Brain: Mild hypodensities in the periventricular white matter which are consistent with chronic small vessel ischemic disease. Diffuse cerebral atrophy. Cortical rich-white matter differentiation is preserved. Cerebral ventricles: Ventricles are in proportion to the degree of atrophy. Paranasal sinuses: Visualized sinuses are unremarkable. No fluid levels. Mastoid air cells: Visualized mastoid air cells are well aerated. Vasculature: Mild hyperdensity of the terminus of the right ICA. Bones/joints: Fracture of the anterior tubercle of C1. Soft tissues: Unremarkable. IMPRESSION: 1. No acute intracranial hemorrhage. 2. Mild hypodensities in the periventricular white matter which are consistent with chronic small vessel ischemic disease. 3. Fracture of the anterior tubercle of C1. See CT cervical spine report. 4. Mild hyperdensity of the terminus of the right ICA. Consider CTA. Electronically signed by: Traci Menezes On 11/24/2020 00:15:42 AM
--- NOTE | 2020-11-24 00:20 | REPVR ---
PROCEDURE INFORMATION: Exam: CT Cervical Spine Without Contrast Exam date and time: 11/23/2020 11:16 PM Age: 89 years old Clinical indication: Neck pain; Additional info: Fall TECHNIQUE: Imaging protocol: Computed tomography images of the cervical spine without contrast. Radiation optimization: All CT scans at this facility use at least one of these dose optimization techniques: automated exposure control; mA and/or kV adjustment per patient size (includes targeted exams where dose is matched to clinical indication); or iterative reconstruction. COMPARISON: CT Spine,cervical w/o contrast 01/15/2019 12:42 PM FINDINGS: Limitations: Examination is limited by motion artifact. Bones/joints: Acute type 2 fracture of the dens. 5 mm retrolisthesis of C1 on C2. Severe lordosis of the spine. Acute fracture of the anterior tubercle of C1. Acute fracture of the right lamina of C1. There is 5 mm retrolisthesis of C1 on C2. Diffuse facet arthropathy. Disc space narrowing and marginal osteophytes at the atlantoodontoid joint. Discs/Spinal canal/Neural foramina: Limited evaluation of the disc space. Lungs: Mild biapical fibrosis in the lungs. Vasculature: Moderate calcified atherosclerotic disease. Soft tissues: Unremarkable. IMPRESSION: 1. Acute type 2 fracture of the dens. 2. 5 mm retrolisthesis of C1 on C2. 3. Acute fractures of the anterior tubercle of C1 and the right lamina of C1. 4. Consider CTA to evaluate vertebral arteries. 5. Additional findings as described. Electronically signed by: Traci Menezes On 11/24/2020 00:19:47 AM
[2020-11-24 01:21] LABS: BASO % 0.3 % (0.0-1.0); EOS # 0.1 10^3/uL (0.0-0.5); EOS % 0.8 % (0.0-3.0); HEMATOCRIT 48.1 % (42.0-52.0); HEMOGLOBIN 15.7 g/dl (13.5-17.5); LYMPH # 1.1 10^3/uL (1.5-5.0); LYMPH % 11.4 % (24.0-44.0); MEAN CORPUSCULAR HEMOGLOBIN 28.9 pg (27.0-33.0); MEAN CORPUSCULAR HGB CONC 32.6 g/dl (32.0-36.5); MEAN CORPUSCULAR VOLUME 88.4 fl (80.0-96.0); MONO # 0.6 10^3/uL (0.0-0.8); MONO % 6.2 % (2.0-8.0); NEUTROPHILS # 7.9 10^3/uL (1.5-8.5); NEUTROPHILS % 80.8 % (36.0-66.0); PLATELET COUNT, AUTOMATED 261 10^3/uL (150-450); RED BLOOD COUNT 5.44 10^6/uL (4.30-6.10); WHITE BLOOD COUNT 9.7 10^3/uL (4.0-10.0)
[2020-11-24 01:46] LABS: ALBUMIN 3.9 GM/DL (3.2-5.2); ALT/SGPT 22 U/L (12-78); BILIRUBIN,TOTAL 0.5 MG/DL (0.2-1.0); BLOOD UREA NITROGEN 9 MG/DL (7-18); CARBON DIOXIDE LEVEL 28 MEQ/L (21-32); CHLORIDE LEVEL 101 MEQ/L (98-107); CREATININE FOR GFR 1.17 MG/DL (0.70-1.30); GLOMERULAR FILTRATION RATE > 60.0 (>35); GLUCOSE, FASTING 178 MG/DL (70-100); POTASSIUM SERUM 3.9 MEQ/L (3.5-5.1); SODIUM LEVEL 139 MEQ/L (136-145); TOTAL PROTEIN 8.1 GM/DL (6.4-8.2)
[2020-11-24 01:53] LABS: RSV AMPLIFICATION NEGATIVE (NEGATIVE)
[2020-11-24] MEDS: MORPHINE 2 MG/ML 1ML VIAL (J2270) IV PRN ×2 (02:10→02:34)
[2020-11-24 02:50] VITALS: BP 210/102
== END 2020-11-24 03:10 | disposition short-term general hospital (02) ==
LOC: M ED 23:14
DX: S00.81XA Abrasion of other part of head, initial encounter (principal); S12.000A Unspecified displaced fracture of first cervical vertebra, initial encounter for closed fracture; S12.100A Unspecified displaced fracture of second cervical vertebra, initial encounter for closed fracture; W19.XXXA Unspecified fall, initial encounter; Y92.128 Other place in nursing home as the place of occurrence of the external cause; I10 Essential (primary) hypertension; F03.90 Unspecified dementia, unspecified severity, without behavioral disturbance, psychotic disturbance, mood disturbance, and anxiety; I48.91 Unspecified atrial fibrillation; Z79.899 Other long term (current) drug therapy; Z79.82 Long term (current) use of aspirin; Z79.01 Long term (current) use of anticoagulants; Z87.891 Personal history of nicotine dependence
CPT/HCPCS: 51703; 70450; 72125; 80053; 85025; 87631; 93041; 96374; 99285; J2270